=== PATIENT | female | born 1950 | race Asian ===

== ENCOUNTER 2016-10-17 10:19 | Emergency (ER) | payer OTHER ==
[2016-10-17 11:05] VITALS: BP 133/101; PULSE 81; TEMP 97.6; BMI 23.0
[2016-10-17] MEDS ORDERED: IBUPROFEN 600 MG TABLET (FP) PO ONE ×2 (11:36→11:43)
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
== END 2016-10-17 12:24 | disposition home or self-care (01) ==
LOC: JERFT 10:19
DX: S39.012A Strain of muscle, fascia and tendon of lower back, initial encounter (principal); I10 Essential (primary) hypertension; Z21 Asymptomatic human immunodeficiency virus [HIV] infection status; V53.5XXA Driver of pick-up truck or van injured in collision with car, pick-up truck or van in traffic accident, initial encounter; Y92.414 Local residential or business street as the place of occurrence of the external cause; Y93.89 Activity, other specified
CPT/HCPCS: 72100-TC; 99281-25